=== PATIENT | male | born 1990 | race Caucasian/White ===

== ENCOUNTER 2024-10-10 09:37 | Emergency (ER) | payer MEDICAID ==
[~2024-10-10] VITALS: Ht 188 cm; Wt 102.0 kg
[~2024-10-10 09:37] MED LIST: PSEU-259 PO
[2024-10-10 09:43] VITALS: BP 143/95; PULSE 80; RESP 18; TEMP 98.1; O2SAT 98
[2024-10-10] MEDS ORDERED: CLIN300C3 PO (09:51)
== END 2024-10-10 09:57 | disposition home or self-care (01) ==
LOC: ER 09:38
DX: K04.7 Periapical abscess without sinus (principal)
CPT/HCPCS: 99283

== ENCOUNTER 2025-01-19 13:16 | Emergency (ER) | payer MEDICAID ==
[~2025-01-19] VITALS: Ht 182.9 cm; Wt 95.0 kg
[2025-01-19 14:25] LABS: MEAN PLATELET VOLUME 8.0 FL (7.4-10.4); RED CELL DISTRIBUTION WIDTH 13.5 % (11.5-14.5)
[2025-01-19 14:35] LABS: CREATININE 0.86 MG/DL (0.60-1.10); TOTAL CARBON DIOXIDE 30.7 MMOL/L (24-32); eCRCL 130 ML/MIN; eGFR > 90 ML/MIN
--- NOTE | 2025-01-19 14:52 | RADIOLOGY REPORT ---
CT CT HEAD INDICATION: r/o abscess progressin to sinus, r/o mastoiditis EXAM DATE: 01/19/2025 02:12 PM COMPARISON: None RADIATION DOSE: CTDIvol: 51 mGy, DLP: 963 mGy*cm PROCEDURE: CT scans of the head were obtained from the vertex to the skull base. Sagittal and coronal reconstructions were provided. All CT scans at this medical facility are performed using dose modulation techniques as appropriate t o a performed exam including the following: Automated exposure control was utilized; adjustment of th e MA and/or KV according to patient size; and use of iterative reconstruction technique. FINDINGS: There is sulcal and ventricular prominence. The brainshows normal morphology and patel-whi te matter differentiation, without intracranial hemorrhage, extra-axial fluid collection, mass effect or acute large vessel infarct. The ventricles are normal in size. The basal cisterns are patent. The skull and visible facial bones are intact. The paranasal sinuses, mastoid air cells and middle ear c avities are well-aerated. The soft tissues of the scalp are unremarkable. IMPRESSION: No fluid collection to suggest for an abscess. No acute intracranial abnormality.
--- NOTE | 2025-01-19 14:56 | RADIOLOGY REPORT ---
CT CT SINUS W/ IV CONTRAST INDICATION: r/o progression of abscess, mastoiditis EXAM DATE: 01/19/2025 02:15 PM COMPARISON: None RADIATION DOSE: CTDIvol: 54 mGy, DLP: 820 mGy*cm PROCEDURE: Using the CT scanner, contiguous noncontrast scans were obtained from above the orbital ri ms to below the mandible. Coronal and sagittal reformatted images were then generated. All CT scans at this medical facility are performed using dose modulation techniques as appropriate t o a performed exam including the following: Automated exposure control was utilized; adjustment of th e MA and/or KV according to patient size; and use of iterative reconstruction technique. FINDINGS: The facial bones, including the orbits and paranasal sinuses are intact without evidence of fracture. The paranasal sinuses, mastoid air cells and middle ear cavities are normally aerated. The orbital contents are normal. The soft tissues of the face are unremarkable. IMPRESSION: No fluid collection to suggest for an abscess.
--- NOTE | 2025-01-19 15:21 | Physician Documentation ---
History of Present Illness ~ Chief Complaint: Abscess Stated Complaint: TOOTH PAIN Time Seen by MD: 13:50 Primary Medical Doctor: [facility] 34-year-old man with a presents to the emergency department for evaluation of tooth abscesses bilaterally. Reports significant pain times several months he has tried antibiotics unable to get into. The dentist currently. She reports that the pain feels like it has gone into his ear, head and into his sinuses. Patient also reports significant pain at the mastoid posterior ear. Patient denies any other significant past medical history or any medications at this time. Tetanus Within 5 Years: No Medication Reconciliation Allergies: Coded Allergies: No Known Allergies (Unverified , 01/19/25) Scheduled Pseudoephedrine Hcl (SUDAFED tablet), 30 MG PO TID Past Medical History Past Medical History: No Pertinent History Past Surgical History: no surgical history Smoking Status: Current every day smoker Alcohol Use: Occasionally Drug Use: marijuana Lives with: Family Lives In: Home Occupation: unemployed Review of Systems ROS As stated above in the HPI, otherwise all systems are reviewed and negative. Physical Exam Vital Signs: Temperature: 97.7, Source: Temporal, Heart Rate: 84, Respiratory Rate: 15, BP: 124/88, Pulse Oximetry: 99, Weight: 94.950 Oxygen Flow Rate: 0 Physical Exam VITALS: Reviewed and as above. GENERAL: Alert, no apparent distress. HEENT: Normocephalic, atraumatic, PERRL, EOMI, dry mucosa, no erythema, pain to the left face, ear and head with palpation. RESPIRATORY: Lungs clear, normal breath sounds, no respiratory distress. CHEST: No accessory muscle use, no retractions SKIN: Warm and dry, no rash NEURO: Oriented x4, No motor or sensory deficit PSYCH: Normal mood and affect, no agitation Progress Results/Orders Results/Orders Orders - VANDANA CARRILLO Ct Head (01/19/25 14:17) Ct Sinus (01/19/25 14:01) Completed Orders - VANDANA CARRILOL Cbc/Diff (01/19/25 13:46) CMP (01/19/25 13:46) LA (01/19/25 13:46) Ct Head (01/19/25 14:17) Ct Sinus (01/19/25 14:01) Vital Signs 01/19/25 01/19/25 01/19/25 13:37 14:09 14:30 Temp 97.7 Pulse 83 75 84 Resp 16 17 15 B/P (MAP) 137/90 159/135 (143) 124/88 (100) Pulse Ox 97 98 99 O2 Flow Rate 0 0 0 Laboratory Tests Test 01/19/25 14:05 White Blood Count 10.4 Red Blood Count 5.10 Hemoglobin 16.5 Hematocrit 47.6 Mean Corpuscular Volume 93.3 Mean Corpuscular Hemoglobin 32.3 H Mean Corpuscular Hemoglobin Concent 34.6 Red Cell Distribution Width 13.5 Platelet Count 224 Mean Platelet Volume 8.0 Neutrophils (%) (Auto) 68.1 Lymphocytes (%) (Auto) 24.8 Monocytes (%) (Auto) 6.3 Eosinophils (%) (Auto) 0.5 Basophils (%) (Auto) 0.3 Neutrophils # (Auto) 7.1 Lymphocytes # (Auto) 2.6 Monocytes # (Auto) 0.7 Eosinophils # (Auto) 0.1 Basophils # (Auto) 0.0 CBC Comment Sodium Level 133 L Potassium Level 3.8 Chloride Level 98 L Carbon Dioxide Level 30.7 Anion Gap 4 L Blood Urea Nitrogen 9 Creatinine 0.86 Estimated GFR/1.73 m2 > 90 BUN/Creatinine Ratio 10.5 Glucose Level 108 H Lactic Acid Level 1.4 Calcium Level 9.3 Total Bilirubin 0.9 Aspartate Amino Transf (AST/SGOT) 29 Alanine Aminotransferase (ALT/SGPT) 57 Alkaline Phosphatase 85 Total Protein 7.8 Albumin 4.5 Globulin 3.3 Albumin/Globulin Ratio 1.4 Chemistry Comments Medical Decision Making Findings Patient presents for dental pain due to suspected dental mitchell. Patient not immunosuppressed, afebrile and well appearing with patent airway, mild concern for for deep space infection but ruled out by CT. Based on history, physical, and work up. No evidence of tooth fracture, avulsion, or bleeding socket. No evidence of RPA, [employer]ALES, Ludwigs angina, periapical abscess. Instructed patient to continue to treat pain with ibuprofen/acetaminophen until they see a dentist.Provided prescription for antibiotics. Patient discharged home and will follow up with dentist. Discussed return precautions for odontogenic infections and other dental pain emergencies. Differential Dx:Considerations: Include: Abscess, Bacteremia, Cellulitis, Erysipelas, Felon, Gas gangrene, Hidrademitis suppurativa, Impetigo, Lymphangitis, Osteromyelitis, Paronychia, Septicemia, Other Departure Disposition: 01 HOME / SELF CARE / HOMELESS Impression: Primary Impression: Abscess Condition: Stable Discharge Instructions: Abscessed Tooth, [id number] Additional Instructions: Re-evaluated for a dental abscess. You have been prescribed antibiotics please take them until they are finished. Prescribed to a couple of days of pain medication. Please follow-up with your primary care provider and dentist as soon as possible. Please return to the emergency department if you develop any fevers additional swelling airway concerns or any additional concerning symptoms. Referrals: NO PRIMARY CARE PROVIDER (PCP) Prescriptions Hydrocodone Bit/Acetaminophen 5/325 MG ([place] 5/325 MG) 5 Mg/325 Mg Tablet 1 TAB PO Q6H PRN for pain, #14 TAB Prov: VANDANA CARRILLOP 01/19/25 Amox Tr/Potassium Clavulanate (Augmentin 875-125 Tablet) 1 Each Tablet 1 TAB PO Q12H for 10 Days, #20 TAB Prov: VANDANA CARRILLOP 01/19/25 Education Educated: Patient Educated regarding: treatment, need for follow up VANDANA CARRILLO [facility] Jan 19, 2025 15:21
[2025-01-19] MEDS ORDERED: AMOX-117 PO (15:26)
[2025-01-19] MEDS ORDERED: HYDR-3965 PO (15:26)
[2025-01-19 15:28] VITALS: BP 122/70; PULSE 70; RESP 16; TEMP 98; O2SAT 97
== END 2025-01-19 15:32 | disposition home or self-care (01) ==
LOC: ER 13:16
DX: K04.7 Periapical abscess without sinus (principal); R51.9 Headache, unspecified; F17.200 Nicotine dependence, unspecified, uncomplicated; F12.90 Cannabis use, unspecified, uncomplicated; Z79.899 Other long term (current) drug therapy; Z56.0 Unemployment, unspecified; Z72.89 Other problems related to lifestyle
CPT/HCPCS: 36415; 70450; 70486; 80053; 83605; 85025; 99284